=== PATIENT | female | born 1975 | race Caucasian/White ===

== ENCOUNTER 2017-12-30 19:16 | Inpatient (IN) | payer OTHER ==
[2017-12-31] MEDS ORDERED: GLUCAGON 1 MG INJ IM (02:00)
[2017-12-31] MEDS ORDERED: GLUCOSE GEL 15 GRAM TUBE BUCCAL (02:00)
[2017-12-31] MEDS ORDERED: GLUCOSE GEL 15 GRAM TUBE PO ×2 (02:00)
[2017-12-31] MEDS ORDERED: DEXTROSE 50% 50 ML SYRINGE IV ×2 (02:00)
[2017-12-31] MEDS: ACCU-CHEK XX ×3 (07:54→14:20)
[2017-12-31] MEDS: INSULIN ASPART [NOVOLOG] 3 ML PEN SC ×2 (08:30→12:20)
[2017-12-31 09:20] LABS: ALANINE AMINOTRANSFERASE 23 IU/L (13-69); ALBUMIN 3.3 g/dl (3.3-4.9); ALBUMIN/GLOBULIN RATIO 0.91; ALKALINE PHOSPHATASE 65 IU/L (42-121); ANION GAP 14 (8-16); ASPARTATE AMINO TRANSFERASE 16 IU/L (15-46); BILIRUBIN,INDIRECT 0.2 mg/dl (0-1.1); BILIRUBIN,TOTAL 0.2 mg/dl (0.2-1.3); BLOOD UREA NITROGEN 8 mg/dl (7-20); CALCIUM 9.3 mg/dl (8.4-10.2); CARBON DIOXIDE 22 mmol/L (21-31); CHLORIDE 108 mmol/L (97-110); CREATININE 0.46 mg/dl (0.44-1.00); GLUCOSE 158 mg/dl (70-220); SODIUM 140 mmol/L (135-144); TOTAL PROTEIN 6.9 g/dl (6.1-8.1)
[2017-12-31 09:41] LABS: HEMOGLOBIN A1C 7.9 % (0-5.9)
[2017-12-31] MEDS: INSULIN GLARGINE [LANtus] 3 ML PEN SC (21:28)
== END 2017-12-31 23:15 | disposition left against medical advice (07) | DRG 781 ==
LOC: OBT 19:16 → PP1 19:19
PROVIDERS: Obstetrics & Gynecology
DX: O24.912 Unspecified diabetes mellitus in pregnancy, second trimester (principal); O09.522 Supervision of elderly multigravida, second trimester; Z3A.21 21 weeks gestation of pregnancy
CPT/HCPCS: 76815; 80053; 82962; 83036

== ENCOUNTER 2018-03-18 00:45 | Outpatient (CLI) | payer OTHER ==
[2018-03-18 03:06] LABS: HEMOGLOBIN A1C 7.3 % (0-5.9)
[2018-03-18 03:24] LABS: GLUCOSE 151 mg/dl (70-220)
== END 2018-03-18 04:00 | disposition home or self-care (01) ==
LOC: OBT 00:45 → L-D 00:47 → OBT 04:00
DX: O24.913 Unspecified diabetes mellitus in pregnancy, third trimester (principal); O09.523 Supervision of elderly multigravida, third trimester; Z3A.32 32 weeks gestation of pregnancy
CPT/HCPCS: 76818; 82947; 83036

== ENCOUNTER 2018-04-08 11:08 | Outpatient (CLI) | payer OTHER ==
[2018-04-26] MEDS ORDERED: INSULIN REGULAR, HUMAN 100 UNIT/1 ML 3ML VIAL SC (13:00)
[2018-04-26] MEDS ORDERED: ACCU-CHEK XX (14:00)
[2018-04-26] MEDS ORDERED: NPH, HUMAN INSULIN ISOPHANE 3ML VIAL SC (20:00)
[2018-04-27] MEDS ORDERED: ACCU-CHEK XX (02:00)
== END 2018-04-08 14:38 | disposition home or self-care (01) ==
LOC: OBT 11:08 → L-D 11:08 → OBT 14:38
DX: O24.913 Unspecified diabetes mellitus in pregnancy, third trimester (principal); O36.8330 Maternal care for abnormalities of the fetal heart rate or rhythm, third trimester, not applicable or unspecified; O09.523 Supervision of elderly multigravida, third trimester; Z3A.35 35 weeks gestation of pregnancy
CPT/HCPCS: 76818; 82962; 93970

== ENCOUNTER 2018-04-13 05:01 | Inpatient (IN) | payer OTHER ==
[2018-04-13] MEDS ORDERED: GLUCOSE GEL 15 GRAM TUBE PO ×2 (06:00)
[2018-04-13] MEDS ORDERED: DEXTROSE 50% 50 ML SYRINGE IV ×2 (06:00)
[2018-04-13] MEDS ORDERED: GLUCAGON 1 MG INJ IM (06:00)
[2018-04-13] MEDS ORDERED: GLUCOSE GEL 15 GRAM TUBE BUCCAL (06:00)
[2018-04-13] MEDS: ACETAMINOPHEN 325 MG TAB PO ×3 (07:08→20:56)
[2018-04-13 07:15] LABS: ADD MAN DIFF? NO
[2018-04-13 07:18] LABS: BASOPHILS % 0.4 % (0.0-2.0); EOSINOPHILS # 0.2 10^3/ul (0.0-0.5); EOSINOPHILS % 2.1 % (0.0-7.0); LYMPHOCYTES # 2.6 10^3/ul (0.8-2.9); LYMPHOCYTES % 25.7 % (15.0-51.0); MEAN CORPUSCULAR HEMOGLOBIN 24.4 pg (29.0-33.0); MEAN CORPUSCULAR HGB CONC 31.4 g/dl (32.0-37.0); MEAN CORPUSCULAR VOLUME 77.6 fl (82.0-101.0); MEAN PLATELET VOLUME 11.9 fl (7.4-10.4); MONOCYTE # 0.6 10^3/ul (0.3-0.9); MONOCYTES % 5.9 % (0.0-11.0); NEUTROPHIL # 6.7 10^3/ul (1.6-7.5); NEUTROPHILS % 65.1 % (39.0-77.0); PLATELET COUNT 226 10^3/UL (140-415); RED BLOOD COUNT 4.51 10^6/ul (4.20-5.40); RED CELL DISTRIBUTION WIDTH 14.5 % (11.5-14.5)
[2018-04-13 07:18] LABS: WHITE BLOOD COUNT 10.2 10^3/ul (4.8-10.8)
[2018-04-13 07:34] LABS: ALANINE AMINOTRANSFERASE 19 IU/L (13-69); ALBUMIN 3.4 g/dl (3.3-4.9); ALBUMIN/GLOBULIN RATIO 1.03; ALKALINE PHOSPHATASE 132 IU/L (42-121); ANION GAP 10 (8-16); ASPARTATE AMINO TRANSFERASE 25 IU/L (15-46); BILIRUBIN,INDIRECT 0.3 mg/dl (0-1.1); BILIRUBIN,TOTAL 0.3 mg/dl (0.2-1.3); BLOOD UREA NITROGEN 9 mg/dl (7-20); CALCIUM 9.9 mg/dl (8.4-10.2); CARBON DIOXIDE 23 mmol/L (21-31); CHLORIDE 112 mmol/L (97-110); CREATININE 0.51 mg/dl (0.44-1.00); GLUCOSE 87 mg/dl (70-220); POTASSIUM 3.9 mmol/L (3.5-5.1); SODIUM 141 mmol/L (135-144); TOTAL PROTEIN 6.7 g/dl (6.1-8.1); URIC ACID 5.5 mg/dl (3.1-7.9)
[2018-04-13] MEDS: INSULIN ASPART [NOVOLOG] 3 ML PEN SC ×3 (09:57→17:28)
[2018-04-13] MEDS: NPH, HUMAN INSULIN ISOPHANE 3ML VIAL SC ×2 (09:59→21:38)
[2018-04-13] MEDS: ACCU-CHEK XX ×4 (10:00→20:41)
[2018-04-13] MEDS: DOCUSATE SODIUM 100 MG CAP PO (10:04)
[2018-04-13] MEDS: FERROUS SULFATE (EC) 325 MG TAB PO (10:05)
[2018-04-13] MEDS: PRENATAL VITAMIN PO (10:05)
[2018-04-13] MEDS: LABETALOL 100 MG TAB PO ×2 (10:07→21:29)
[2018-04-13 16:31] LABS: UR BILIRUBIN (Dip) NEGATIVE (NEGATIVE); UR BLOOD (Dip) 2+ mg/dL (NEGATIVE); UR CLARITY SLIGHTLY CLOUDY (CLEAR); UR COLOR YELLOW (YELLOW); UR GLUCOSE (Dip) NEGATIVE (NEGATIVE); UR KETONES (Dip) NEGATIVE (NEGATIVE); UR SPECIFIC GRAVITY (Dip) 1.017 (1.003-1.030); UR TOTAL PROTEIN (Dip) NEGATIVE (NEGATIVE)
[2018-04-13 16:32] LABS: ADD UMIC YES; UR ASCORBIC ACID NEGATIVE (NEGATIVE); UR BACTERIA MODERATE /HPF (NONE SEEN); UR CALCIUM OXALATE CRYSTAL FEW /HPF (NONE SEEN); UR LEUKOCYTE ESTERASE (Dip) TRACE Leu/ul (NEGATIVE); UR NITRITE (Dip) NEGATIVE (NEGATIVE); UR RBC 13 /HPF (0-5); UR UROBILINOGEN (Dip) NEGATIVE (NEGATIVE); UR WBC 22 /HPF (0-5)
[2018-04-13] MEDS ORDERED: OXYTOCIN 30 UNITS/LR 500 ML IV ×3 (19:00→21:30)
[2018-04-13] MEDS ORDERED: METHYLERGONOVINE 0.2 MG INJ IM ×2 (19:00→21:30)
[2018-04-13] MEDS ORDERED: MISOPROSTOL 200 MCG TAB PR ×2 (19:00→21:30)
[2018-04-13] MEDS ORDERED: CARBOPROST 250 MCG INJ IM ×2 (19:00→21:30)
[2018-04-13 21:00] LABS: ADD MAN DIFF? NO
[2018-04-13 21:02] LABS: HEPATITIS B SURFACE ANTIGEN NEGATIVE (NEGATIVE)
[2018-04-13 21:03] LABS: WHITE BLOOD COUNT 9.8 10^3/ul (4.8-10.8)
[2018-04-13 21:03] LABS: BASOPHILS % 0.4 % (0.0-2.0); EOSINOPHILS # 0.2 10^3/ul (0.0-0.5); EOSINOPHILS % 1.8 % (0.0-7.0); HEMATOCRIT 33.5 % (37.0-47.0); HEMOGLOBIN 10.6 g/dl (12.0-16.0); LYMPHOCYTES # 2.6 10^3/ul (0.8-2.9); LYMPHOCYTES % 26.2 % (15.0-51.0); MEAN CORPUSCULAR HEMOGLOBIN 24.8 pg (29.0-33.0); MEAN CORPUSCULAR HGB CONC 31.6 g/dl (32.0-37.0); MEAN CORPUSCULAR VOLUME 78.3 fl (82.0-101.0); MONOCYTE # 0.6 10^3/ul (0.3-0.9); MONOCYTES % 6.2 % (0.0-11.0); NEUTROPHIL # 6.3 10^3/ul (1.6-7.5); NEUTROPHILS % 64.8 % (39.0-77.0); PLATELET COUNT 219 10^3/UL (140-415); RED BLOOD COUNT 4.28 10^6/ul (4.20-5.40); RED CELL DISTRIBUTION WIDTH 14.3 % (11.5-14.5)
[2018-04-13 21:22] LABS: ALANINE AMINOTRANSFERASE 21 IU/L (13-69); ALBUMIN/GLOBULIN RATIO 0.85; ALKALINE PHOSPHATASE 117 IU/L (42-121); ANION GAP 10 (8-16); ASPARTATE AMINO TRANSFERASE 22 IU/L (15-46); BILIRUBIN,INDIRECT 0.2 mg/dl (0-1.1); BILIRUBIN,TOTAL 0.2 mg/dl (0.2-1.3); BLOOD UREA NITROGEN 12 mg/dl (7-20); CALCIUM 9.5 mg/dl (8.4-10.2); CARBON DIOXIDE 21 mmol/L (21-31); CHLORIDE 108 mmol/L (97-110); CREATININE 0.67 mg/dl (0.44-1.00); GLUCOSE 101 mg/dl (70-220); SODIUM 135 mmol/L (135-144); TOTAL PROTEIN 6.5 g/dl (6.1-8.1)
[2018-04-13 21:23] LABS: INR 0.98; PROTIME 13.1 Sec (11.9-14.9)
[2018-04-13 21:24] LABS: PARTIAL THROMBOPLASTIN TIME 28.4 Sec (25.0-35.0)
[2018-04-14] MEDS: LACTATED RINGER'S 1,000 ML IV ×6 (06:13→22:12)
[2018-04-14] MEDS ORDERED: CEFAZOLIN 2 GM/50 ML (PMX) 50 ML IV (07:00)
[2018-04-14] MEDS ORDERED: OXYTOCIN 30 UNITS/LR 500 ML BAG IV (07:00)
[2018-04-14] MEDS: INSULIN ASPART [NOVOLOG] 3 ML PEN SC ×3 (07:35→17:11)
[2018-04-14] MEDS ORDERED: OXYTOCIN 30 UNITS/LR 500 ML IV (08:00)
[2018-04-14] MEDS ORDERED: MISOPROSTOL 200 MCG TAB PR (08:00)
[2018-04-14] MEDS ORDERED: METHYLERGONOVINE 0.2 MG TAB PO (08:00)
[2018-04-14] MEDS ORDERED: METHYLERGONOVINE 0.2 MG INJ IM (08:00)
[2018-04-14] MEDS ORDERED: CARBOPROST 250 MCG INJ IM (08:00)
[2018-04-14] MEDS ORDERED: LANOLIN 7 GM TUBE TOP (08:00)
[2018-04-14] MEDS ORDERED: BUPIVACAINE 0.75%/DEXT (SPINAL) 2 ML INJ (08:25)
[2018-04-14] MEDS: CEFAZOLIN 3 GM in DEXTROSE 5% 100 ML IV (08:25)
[2018-04-14] MEDS ORDERED: morphine SULFATE/PF (10 MG/10 ML) INJ (08:25)
[2018-04-14] MEDS ORDERED: PHENYLephrine (100 MCG/ML) 5ML SYG (08:26)
[2018-04-14] MEDS ORDERED: CEFAZOLIN 2 GM/50 ML (PMX) 50 ML IVPB (09:00)
[2018-04-14] MEDS ORDERED: GLUCOSE GEL 15 GRAM TUBE BUCCAL (09:00)
[2018-04-14] MEDS: SENNA/DOCUSATE NA (8.6MG/50MG) TAB PO ×2 (09:00→21:00)
[2018-04-14] MEDS: KETOROLAC 30 MG INJ IV ×4 (09:00→21:08)
[2018-04-14] MEDS ORDERED: GLUCOSE GEL 15 GRAM TUBE PO ×2 (09:00)
[2018-04-14] MEDS ORDERED: GLUCAGON 1 MG INJ IM (09:00)
[2018-04-14] MEDS ORDERED: DEXTROSE 50% 50 ML SYRINGE IV ×2 (09:00)
[2018-04-14] MEDS: LABETALOL 100 MG TAB PO ×2 (09:00→21:09)
[2018-04-14 09:19] LABS: Arterial Cord Blood pCO2 79.9 mmHG (25-50); CBA Base Excess -5.8 mmol/L; CBA COHb 0.3 %; CBA Total Hemglobin 17.4 g/dl; Fraction OxyHgb Cord Arterial 3.3 %; MODE ROOM AIR; Sample Type CBA; Site CORD
[2018-04-14 09:23] LABS: CBV Base Excess -5.1 mmol/L; CBV COHb 0.7 %; CBV Oxygen Sat 34.7 mmHG; CBV Total Hemglobin 17.8 g/dl; Cord Blood Venous pO2 18.5 mmHG (15.0-45.0); Fraction OxyHgb Cord Venous 33.9 %; MODE ROOM AIR; MetHgb Cord Venous 1.6 %; Sample Type CBV; Site CORD
[2018-04-14] MEDS ORDERED: METOCLOPRAMIDE 10 MG INJ (10:06)
[2018-04-14] MEDS: METOCLOPRAMIDE 10 MG INJ IV (10:12)
[2018-04-14] MEDS: OXYTOCIN 30 UNITS/LR 500 ML IV (10:23)
[2018-04-14] MEDS ORDERED: NALOXONE (0.4 MG/ML) INJ IV ×3 (10:30→13:30)
[2018-04-14] MEDS ORDERED: FENTAnyl 50 MCG/ML VIAL IV ×4 (10:30)
[2018-04-14] MEDS ORDERED: HYDROmorphONE 1 MG/5 ML IV SYRINGE IV ×4 (10:30)
[2018-04-14] MEDS ORDERED: ALBUTEROL 0.083% (NEB) 2.5 MG/3 ML AMP HHN (10:30)
[2018-04-14] MEDS ORDERED: KETOROLAC 30 MG INJ IV (10:30)
[2018-04-14] MEDS ORDERED: INSULIN LISPRO 20 UNIT SQ (11:00)
[2018-04-14] MEDS: ACCU-CHEK XX ×4 (11:48→20:08)
[2018-04-14 12:01] LABS: COLLECTION PERIOD 24 hrs
[2018-04-14] MEDS ORDERED: ONDANSETRON 4 MG INJ ×2 (12:20)
[2018-04-14] MEDS ORDERED: LABETALOL HCL 20MG INJ (12:21)
[2018-04-14] MEDS ORDERED: DIPHENHYDRAMINE 50 MG INJ (12:21)
[2018-04-14] MEDS: HYDROCORTISONE 1% 28 GM CR TOP (12:31)
[2018-04-14] MEDS: INSULIN REGULAR, HUMAN 100 UNIT/1 ML 3ML VIAL SC (13:05)
[2018-04-14] MEDS ORDERED: METOCLOPRAMIDE 10 MG INJ IV (13:30)
[2018-04-14] MEDS ORDERED: ONDANSETRON 4 MG INJ IV (13:30)
[2018-04-14] MEDS ORDERED: DIPHENHYDRAMINE 50 MG INJ IV (13:30)
[2018-04-14 13:34] LABS: ALANINE AMINOTRANSFERASE 14 IU/L (13-69); ALBUMIN 3.2 g/dl (3.3-4.9); ALBUMIN/GLOBULIN RATIO 0.91; ALKALINE PHOSPHATASE 128 IU/L (42-121); ANION GAP 13 (8-16); ASPARTATE AMINO TRANSFERASE 29 IU/L (15-46); BILIRUBIN,INDIRECT 0.4 mg/dl (0-1.1); BILIRUBIN,TOTAL 0.4 mg/dl (0.2-1.3); BLOOD UREA NITROGEN 12 mg/dl (7-20); CALCIUM 9.4 mg/dl (8.4-10.2); CARBON DIOXIDE 20 mmol/L (21-31); CHLORIDE 108 mmol/L (97-110); CREATININE 0.59 mg/dl (0.44-1.00); GLUCOSE 227 mg/dl (70-220); POTASSIUM 4.6 mmol/L (3.5-5.1); SODIUM 136 mmol/L (135-144); TOTAL PROTEIN 6.7 g/dl (6.1-8.1)
[2018-04-14 13:43] LABS: COLLECTION PERIOD 24 hrs
[2018-04-14 13:45] LABS: SCRET 0.59 mg/dl (0.44-1.00); VOLUME 2000 ml/24hrs
[2018-04-14 13:46] LABS: CREATININE CLEARANCE 181.7 mls/min (84.0-162.0); VOLUME 2000 mls
[2018-04-14 15:09] LABS: RAPID PLASMA REAGIN NONREACTIVE (NR)
[2018-04-14] MEDS: ENOXAPARIN 40 MG/0.4 ML SYG SC (15:14)
[2018-04-14] MEDS: INSULIN REGULAR, HUMAN 100 UNIT/1 ML 3ML VIAL IV (16:31)
[2018-04-14] MEDS: ONDANSETRON 4 MG INJ IV (16:41)
[2018-04-14] MEDS ORDERED: POTASSIUM CHLORIDE 30 MEQ in SOD CHLORIDE 0.9% 1,000 ML IV (17:30)
[2018-04-14] MEDS: CEFAZOLIN 2 GM/50 ML (PMX) 50 ML IVPB (17:36)
[2018-04-14] MEDS ORDERED: SOD CHLORIDE 0.9% IV (18:30)
[2018-04-14] MEDS ORDERED: POTASSIUM CHLORIDE IV (18:30)
[2018-04-14] MEDS: POTASSIUM CHLORIDE IV (18:54)
[2018-04-14] MEDS: SOD CHLORIDE 0.9% IV (18:54)
[2018-04-14] MEDS: NPH, HUMAN INSULIN ISOPHANE 3ML VIAL SC (21:06)
[2018-04-15] MEDS: DIPHENHYDRAMINE 50 MG INJ IV (00:39)
[2018-04-15] MEDS: CEFAZOLIN 2 GM/50 ML (PMX) 50 ML IVPB ×2 (01:11→08:35)
[2018-04-15] MEDS: SOD CHLORIDE 0.9% IV ×2 (02:04→09:58)
[2018-04-15] MEDS: POTASSIUM CHLORIDE IV ×2 (02:04→09:58)
[2018-04-15] MEDS: KETOROLAC 30 MG INJ IV ×4 (02:55→21:07)
[2018-04-15] MEDS: NPH, HUMAN INSULIN ISOPHANE 3ML VIAL SC ×2 (07:35→21:27)
[2018-04-15] MEDS: LACTATED RINGER'S 1,000 ML IV ×2 (07:53→15:53)
[2018-04-15 08:09] LABS: ADD MAN DIFF? NO
[2018-04-15 08:12] LABS: BASOPHILS % 0.3 % (0.0-2.0); EOSINOPHILS # 0.1 10^3/ul (0.0-0.5); EOSINOPHILS % 1.3 % (0.0-7.0); HEMATOCRIT 27.7 % (37.0-47.0); HEMOGLOBIN 8.5 g/dl (12.0-16.0); LYMPHOCYTES # 2.8 10^3/ul (0.8-2.9); LYMPHOCYTES % 25.3 % (15.0-51.0); MEAN CORPUSCULAR HEMOGLOBIN 24.2 pg (29.0-33.0); MEAN CORPUSCULAR HGB CONC 30.7 g/dl (32.0-37.0); MEAN CORPUSCULAR VOLUME 78.9 fl (82.0-101.0); MEAN PLATELET VOLUME 11.8 fl (7.4-10.4); MONOCYTE # 0.7 10^3/ul (0.3-0.9); MONOCYTES % 6.3 % (0.0-11.0); NEUTROPHIL # 7.4 10^3/ul (1.6-7.5); NEUTROPHILS % 66.2 % (39.0-77.0); PLATELET COUNT 188 10^3/UL (140-415); RED BLOOD COUNT 3.51 10^6/ul (4.20-5.40); RED CELL DISTRIBUTION WIDTH 14.9 % (11.5-14.5)
[2018-04-15 08:12] LABS: WHITE BLOOD COUNT 11.1 10^3/ul (4.8-10.8)
[2018-04-15] MEDS: ACCU-CHEK XX ×4 (08:19→20:05)
[2018-04-15 08:31] LABS: ALANINE AMINOTRANSFERASE 16 IU/L (13-69); ALBUMIN 2.6 g/dl (3.3-4.9); ALBUMIN/GLOBULIN RATIO 0.81; ALKALINE PHOSPHATASE 94 IU/L (42-121); ANION GAP 9 (8-16); ASPARTATE AMINO TRANSFERASE 25 IU/L (15-46); BILIRUBIN,INDIRECT 0.3 mg/dl (0-1.1); BILIRUBIN,TOTAL 0.3 mg/dl (0.2-1.3); BLOOD UREA NITROGEN 15 mg/dl (7-20); CARBON DIOXIDE 22 mmol/L (21-31); CHLORIDE 111 mmol/L (97-110); CREATININE 0.73 mg/dl (0.44-1.00); GLUCOSE 87 mg/dl (70-220); POTASSIUM 4.3 mmol/L (3.5-5.1); SODIUM 138 mmol/L (135-144); TOTAL PROTEIN 5.8 g/dl (6.1-8.1); URIC ACID 7.7 mg/dl (3.1-7.9)
[2018-04-15 08:32] LABS: PROTIME 13.3 Sec (11.9-14.9)
[2018-04-15 08:33] LABS: PARTIAL THROMBOPLASTIN TIME 30.3 Sec (25.0-35.0)
[2018-04-15] MEDS: ENOXAPARIN 40 MG/0.4 ML SYG SC (08:45)
[2018-04-15] MEDS: INSULIN ASPART [NOVOLOG] 3 ML PEN SC ×3 (08:46→18:20)
[2018-04-15] MEDS: SENNA/DOCUSATE NA (8.6MG/50MG) TAB PO ×2 (09:00→21:08)
[2018-04-15] MEDS: LABETALOL 100 MG TAB PO ×2 (09:00→21:08)
[2018-04-15] MEDS: HYDROCODONE/APAP (5/325) TAB PO ×2 (11:12→18:29)
[2018-04-15] MEDS ORDERED: VITAMIN A & D 5 GM OINT PACKET TOP (21:04)
[2018-04-16] MEDS: LACTATED RINGER'S 1,000 ML IV ×3 (01:04→15:53)
[2018-04-16] MEDS: HYDROCODONE/APAP (5/325) TAB PO ×3 (01:08→15:48)
[2018-04-16] MEDS: KETOROLAC 30 MG INJ IV ×3 (04:00→15:00)
[2018-04-16] MEDS: IBUPROFEN 800 MG TAB PO ×3 (06:00→21:08)
[2018-04-16] MEDS: ACCU-CHEK XX ×4 (08:12→21:00)
[2018-04-16] MEDS: SENNA/DOCUSATE NA (8.6MG/50MG) TAB PO ×2 (08:31→21:07)
[2018-04-16] MEDS: LABETALOL 100 MG TAB PO ×2 (08:31→21:08)
[2018-04-16] MEDS: ENOXAPARIN 40 MG/0.4 ML SYG SC (08:33)
[2018-04-16] MEDS: INSULIN ASPART [NOVOLOG] 3 ML PEN SC ×3 (08:34→18:00)
[2018-04-16] MEDS: NPH, HUMAN INSULIN ISOPHANE 3ML VIAL SC ×2 (08:36→21:10)
[2018-04-17] MEDS: HYDROCODONE/APAP (5/325) TAB PO ×4 (00:31→18:14)
[2018-04-17] MEDS: IBUPROFEN 800 MG TAB PO ×3 (06:18→21:50)
[2018-04-17] MEDS: ACCU-CHEK XX ×4 (08:31→21:30)
[2018-04-17] MEDS: SENNA/DOCUSATE NA (8.6MG/50MG) TAB PO ×2 (08:48→21:00)
[2018-04-17] MEDS: LABETALOL 100 MG TAB PO ×2 (08:48→20:43)
[2018-04-17] MEDS: ENOXAPARIN 40 MG/0.4 ML SYG SC (08:50)
[2018-04-17] MEDS: INSULIN ASPART [NOVOLOG] 3 ML PEN SC ×3 (08:51→18:19)
[2018-04-17] MEDS: NPH, HUMAN INSULIN ISOPHANE 3ML VIAL SC ×2 (08:55→21:43)
[2018-04-17] MEDS: MEASLES,MUMPS,RUBELLA VACCINE INJ SC* (09:00)
[2018-04-17] MEDS: BISACODYL (EC) 5 MG TAB PO (12:41)
[2018-04-17] MEDS: DIPHTH/TET/ACEL PERTUSS (ADULT) 0.5 ML VIAL IM* (13:44)
[2018-04-17] MEDS: PETROLATUM 28.35 GM JELLY TOP ×2 (13:46→20:44)
[2018-04-17] MEDS: NA PHOSPHATE/BIPHOS 133 ML ENEMA PR (18:36)
[2018-04-17] MEDS: HYDROCORTISONE 1% 28 GM CR TOP (20:43)
[2018-04-18] MEDS: HYDROCODONE/APAP (5/325) TAB PO ×2 (04:16→08:23)
[2018-04-18] MEDS: IBUPROFEN 800 MG TAB PO (05:47)
[2018-04-18] MEDS: NPH, HUMAN INSULIN ISOPHANE 3ML VIAL SC (07:35)
[2018-04-18] MEDS: PETROLATUM 28.35 GM JELLY TOP (08:06)
[2018-04-18] MEDS: ACCU-CHEK XX ×2 (08:06→11:40)
[2018-04-18] MEDS: SENNA/DOCUSATE NA (8.6MG/50MG) TAB PO (08:07)
[2018-04-18 08:20] LABS: ADD MAN DIFF? NO
[2018-04-18] MEDS: LABETALOL 100 MG TAB PO (08:25)
[2018-04-18 08:28] LABS: BASOPHIL # 0.1 10^3/ul (0.0-0.1); BASOPHILS % 0.5 % (0.0-2.0); EOSINOPHILS # 0.4 10^3/ul (0.0-0.5); EOSINOPHILS % 3.5 % (0.0-7.0); HEMATOCRIT 30.7 % (37.0-47.0); HEMOGLOBIN 9.4 g/dl (12.0-16.0); LYMPHOCYTES # 2.5 10^3/ul (0.8-2.9); LYMPHOCYTES % 25.1 % (15.0-51.0); MEAN CORPUSCULAR HEMOGLOBIN 24.3 pg (29.0-33.0); MEAN CORPUSCULAR HGB CONC 30.6 g/dl (32.0-37.0); MEAN CORPUSCULAR VOLUME 79.3 fl (82.0-101.0); MEAN PLATELET VOLUME 11.1 fl (7.4-10.4); MONOCYTE # 0.6 10^3/ul (0.3-0.9); MONOCYTES % 5.6 % (0.0-11.0); NEUTROPHIL # 6.5 10^3/ul (1.6-7.5); NEUTROPHILS % 64.7 % (39.0-77.0); PLATELET COUNT 304 10^3/UL (140-415); RED BLOOD COUNT 3.87 10^6/ul (4.20-5.40); RED CELL DISTRIBUTION WIDTH 14.6 % (11.5-14.5)
[2018-04-18] MEDS: ENOXAPARIN 40 MG/0.4 ML SYG SC (08:29)
[2018-04-18] MEDS: INSULIN ASPART [NOVOLOG] 3 ML PEN SC (09:19)
[2018-04-18] MEDS: DIPHTH/TET/ACEL PERTUSS (ADULT) 0.5 ML VIAL IM* (12:13)
== END 2018-04-18 13:03 | disposition home or self-care (01) | DRG 766 ==
LOC: PP1 05:01 → L-D 04-14 07:51 → PP1 04-14 14:06
PROVIDERS: Obstetrics & Gynecology
PROC: 10D00Z1 Extraction of Products of Conception, Low, Open Approach (ICD-10-PCS; principal; 2018-04-14 07:30)
PROC: 0UB70ZZ Excision of Bilateral Fallopian Tubes, Open Approach (ICD-10-PCS; 2018-04-14 07:30)
DX: O24.82 Other pre-existing diabetes mellitus in childbirth (principal); O14.94 Unspecified pre-eclampsia, complicating childbirth; O34.211 Maternal care for low transverse scar from previous cesarean delivery; O99.214 Obesity complicating childbirth; E66.01 Morbid (severe) obesity due to excess calories; E10.65 Type 1 diabetes mellitus with hyperglycemia; O99.02 Anemia complicating childbirth; D64.9 Anemia, unspecified; Z3A.36 36 weeks gestation of pregnancy; Z37.0 Single live birth; Z91.19 Patient's noncompliance with other medical treatment and regimen; Z79.4 Long term (current) use of insulin; Z30.2 Encounter for sterilization
CPT/HCPCS: 36415; 36600; 76818; 80053; 81001; 82575; 82803; 82962; 84156; 84560; 85025; 85384; 85610; 85730; 86592; 86850; 86900; 86901; 87086; 87340; 88302; 88307; 90715; 99464

== ENCOUNTER 2018-04-24 23:06 | Emergency (ER) | payer OTHER ==
[2018-04-25] MEDS: ONDANSETRON 4 MG INJ IV (01:57)
[2018-04-25] MEDS: morphine 4 MG/ML VIAL IV (01:57)
[2018-04-25] MEDS: SOD CHLORIDE 0.9% 1,000 ML IV (02:02)
[2018-04-25 02:19] LABS: ADD MAN DIFF? NO
[2018-04-25 02:20] LABS: WHITE BLOOD COUNT 12.8 10^3/ul (4.8-10.8)
[2018-04-25 02:20] LABS: BASOPHIL # 0.1 10^3/ul (0.0-0.1); BASOPHILS % 0.4 % (0.0-2.0); EOSINOPHILS # 0.3 10^3/ul (0.0-0.5); EOSINOPHILS % 2.4 % (0.0-7.0); HEMATOCRIT 29.4 % (37.0-47.0); LYMPHOCYTES # 2.4 10^3/ul (0.8-2.9); LYMPHOCYTES % 19.1 % (15.0-51.0); MEAN CORPUSCULAR HEMOGLOBIN 24.2 pg (29.0-33.0); MEAN CORPUSCULAR HGB CONC 30.6 g/dl (32.0-37.0); MEAN PLATELET VOLUME 9.9 fl (7.4-10.4); MONOCYTE # 0.7 10^3/ul (0.3-0.9); MONOCYTES % 5.4 % (0.0-11.0); NEUTROPHIL # 9.2 10^3/ul (1.6-7.5); PLATELET COUNT 438 10^3/UL (140-415); RED BLOOD COUNT 3.72 10^6/ul (4.20-5.40); RED CELL DISTRIBUTION WIDTH 14.1 % (11.5-14.5)
[2018-04-25] MEDS: SOD CHLORIDE 0.9% 100 ML (02:33)
[2018-04-25] MEDS: IOHEXOL 300MG/ML 150 ML BTL (02:33)
[2018-04-25 02:39] LABS: ADD UMIC YES; UR ASCORBIC ACID 40 mg/dL (NEGATIVE); UR BACTERIA FEW /HPF (NONE SEEN); UR BILIRUBIN (Dip) NEGATIVE (NEGATIVE); UR BLOOD (Dip) 3+ mg/dL (NEGATIVE); UR CLARITY SLIGHTLY CLOUDY (CLEAR); UR COLOR YELLOW (YELLOW); UR GLUCOSE (Dip) NEGATIVE (NEGATIVE); UR KETONES (Dip) NEGATIVE (NEGATIVE); UR LEUKOCYTE ESTERASE (Dip) TRACE Leu/ul (NEGATIVE); UR MUCUS FEW /HPF (NONE SEEN); UR NITRITE (Dip) NEGATIVE (NEGATIVE); UR NONSQUAMOUS EPITHELIAL CELL 3 /HPF (NONE SEEN); UR RBC 177 /HPF (0-5); UR SPECIFIC GRAVITY (Dip) 1.028 (1.003-1.030); UR SQUAMOUS EPITHELIAL CELL FEW /HPF (FEW); UR TOTAL PROTEIN (Dip) 2+ mg/dl (NEGATIVE); UR UROBILINOGEN (Dip) NEGATIVE (NEGATIVE); UR WBC 15 /HPF (0-5)
[2018-04-25 02:41] LABS: ALANINE AMINOTRANSFERASE 19 IU/L (13-69); ALBUMIN 3.4 g/dl (3.3-4.9); ALBUMIN/GLOBULIN RATIO 0.91; ALKALINE PHOSPHATASE 109 IU/L (42-121); ANION GAP 15 (8-16); ASPARTATE AMINO TRANSFERASE 19 IU/L (15-46); BILIRUBIN,INDIRECT 0.1 mg/dl (0-1.1); BILIRUBIN,TOTAL 0.1 mg/dl (0.2-1.3); BLOOD UREA NITROGEN 15 mg/dl (7-20); CALCIUM 9.4 mg/dl (8.4-10.2); CARBON DIOXIDE 24 mmol/L (21-31); CHLORIDE 108 mmol/L (97-110); CREATININE 0.63 mg/dl (0.44-1.00); GLUCOSE 102 mg/dl (70-220); LIPASE 20 U/L (23-300); POTASSIUM 4.1 mmol/L (3.5-5.1); SODIUM 143 mmol/L (135-144); TOTAL PROTEIN 7.1 g/dl (6.1-8.1)
[2018-04-25] MEDS: CEFTRIAXONE 2 GM/50 ML (PMX) 50 ML IVPB (04:40)
== END 2018-04-25 05:15 | disposition home or self-care (01) ==
LOC: FTE 23:06
DX: L03.311 Cellulitis of abdominal wall (principal); I10 Essential (primary) hypertension; E66.01 Morbid (severe) obesity due to excess calories; Z79.4 Long term (current) use of insulin
CPT/HCPCS: 36415; 74177; 80053; 81001; 83690; 85025; 96374; 96375; 99285-25

== ENCOUNTER 2018-04-25 23:02 | Inpatient (IN) | payer OTHER ==
[2018-04-26] MEDS: ONDANSETRON 4 MG INJ IV (02:40)
[2018-04-26] MEDS: SOD CHLORIDE 0.9% 1,000 ML IV (02:40)
[2018-04-26] MEDS: morphine 4 MG/ML VIAL IV (02:40)
[2018-04-26] MEDS: ACETAMINOPHEN 500 MG TAB PO (02:40)
[2018-04-26 02:55] LABS: ADD MAN DIFF? NO
[2018-04-26 02:57] LABS: BASOPHIL # 0.1 10^3/ul (0.0-0.1); BASOPHILS % 0.6 % (0.0-2.0); EOSINOPHILS # 0.4 10^3/ul (0.0-0.5); EOSINOPHILS % 3.3 % (0.0-7.0); HEMATOCRIT 32.4 % (37.0-47.0); HEMOGLOBIN 9.8 g/dl (12.0-16.0); LYMPHOCYTES # 2.5 10^3/ul (0.8-2.9); LYMPHOCYTES % 18.8 % (15.0-51.0); MEAN CORPUSCULAR HEMOGLOBIN 23.7 pg (29.0-33.0); MEAN CORPUSCULAR HGB CONC 30.2 g/dl (32.0-37.0); MEAN CORPUSCULAR VOLUME 78.5 fl (82.0-101.0); MEAN PLATELET VOLUME 10.3 fl (7.4-10.4); MONOCYTE # 0.7 10^3/ul (0.3-0.9); MONOCYTES % 5.2 % (0.0-11.0); NEUTROPHIL # 9.4 10^3/ul (1.6-7.5); NEUTROPHILS % 71.4 % (39.0-77.0); PLATELET COUNT 532 10^3/UL (140-415); RED BLOOD COUNT 4.13 10^6/ul (4.20-5.40); RED CELL DISTRIBUTION WIDTH 14.5 % (11.5-14.5)
[2018-04-26 02:57] LABS: WHITE BLOOD COUNT 13.2 10^3/ul (4.8-10.8)
[2018-04-26 03:19] LABS: LACTIC ACID 0.9 mmol/L (0.5-2.0)
[2018-04-26 03:22] LABS: ALANINE AMINOTRANSFERASE 20 IU/L (13-69); ALBUMIN 3.9 g/dl (3.3-4.9); ALBUMIN/GLOBULIN RATIO 0.92; ALKALINE PHOSPHATASE 138 IU/L (42-121); ANION GAP 14 (8-16); ASPARTATE AMINO TRANSFERASE 21 IU/L (15-46); BILIRUBIN,INDIRECT 0.2 mg/dl (0-1.1); BILIRUBIN,TOTAL 0.2 mg/dl (0.2-1.3); BLOOD UREA NITROGEN 15 mg/dl (7-20); CALCIUM 9.7 mg/dl (8.4-10.2); CARBON DIOXIDE 28 mmol/L (21-31); CHLORIDE 106 mmol/L (97-110); CREATININE 0.68 mg/dl (0.44-1.00); GLUCOSE 136 mg/dl (70-220); LIPASE 32 U/L (23-300); POTASSIUM 4.3 mmol/L (3.5-5.1); SODIUM 144 mmol/L (135-144); TOTAL PROTEIN 8.1 g/dl (6.1-8.1)
[2018-04-26] MEDS: PIPER-TAZO 3.375 GM IV (PMX) 100 ML IVPB ×4 (04:24→23:10)
[2018-04-26] MEDS ORDERED: ACETAMINOPHEN 325 MG TAB PO (06:00)
[2018-04-26] MEDS ORDERED: ONDANSETRON 4 MG INJ IV (06:00)
[2018-04-26 06:13] LABS: ADD UMIC YES; UR ASCORBIC ACID NEGATIVE (NEGATIVE); UR BACTERIA FEW /HPF (NONE SEEN); UR BILIRUBIN (Dip) NEGATIVE (NEGATIVE); UR BLOOD (Dip) 3+ mg/dL (NEGATIVE); UR CLARITY CLEAR (CLEAR); UR COLOR YELLOW (YELLOW); UR GLUCOSE (Dip) NEGATIVE (NEGATIVE); UR KETONES (Dip) NEGATIVE (NEGATIVE); UR LEUKOCYTE ESTERASE (Dip) TRACE Leu/ul (NEGATIVE); UR MUCUS FEW /HPF (NONE SEEN); UR NITRITE (Dip) NEGATIVE (NEGATIVE); UR RBC 87 /HPF (0-5); UR SPECIFIC GRAVITY (Dip) 1.019 (1.003-1.030); UR SQUAMOUS EPITHELIAL CELL FEW /HPF (FEW); UR TOTAL PROTEIN (Dip) NEGATIVE (NEGATIVE); UR UROBILINOGEN (Dip) NEGATIVE (NEGATIVE); UR WBC 4 /HPF (0-5)
[2018-04-26] MEDS ORDERED: VANCOMYCIN IV PER PHARMACY XX (10:00)
[2018-04-26] MEDS ORDERED: GLUCOSE GEL 15 GRAM TUBE BUCCAL (11:30)
[2018-04-26] MEDS ORDERED: GLUCAGON 1 MG INJ IM (11:30)
[2018-04-26] MEDS ORDERED: DEXTROSE 50% 50 ML SYRINGE IV ×2 (11:30)
[2018-04-26] MEDS ORDERED: GLUCOSE GEL 15 GRAM TUBE PO ×2 (11:30)
[2018-04-26] MEDS: HYDROCODONE/APAP (5/325) TAB PO ×3 (11:33→23:12)
[2018-04-26] MEDS: INSULIN ASPART [NOVOLOG] 3 ML PEN SC ×3 (12:00→19:55)
[2018-04-26 12:15] LABS: HEMOGLOBIN A1C 7.8 % (0-5.9)
[2018-04-26] MEDS: VANCOMYCIN 2 GM in SOD CHLORIDE 0.9% 500 ML IVPB (12:31)
[2018-04-26] MEDS: ACCU-CHEK XX ×2 (16:00→19:55)
[2018-04-26] MEDS: NA PHOSPHATE/BIPHOS 133 ML ENEMA PR (20:58)
[2018-04-26] MEDS: NPH, HUMAN INSULIN ISOPHANE 3ML VIAL SC (21:00)
[2018-04-26] MEDS: VANCOMYCIN 1.75 GM in SOD CHLORIDE 0.9% 500 ML IVPB (23:13)
[2018-04-27 05:41] LABS: ADD MAN DIFF? NO
[2018-04-27 05:47] LABS: BASOPHIL # 0.1 10^3/ul (0.0-0.1); BASOPHILS % 0.8 % (0.0-2.0); EOSINOPHILS # 0.4 10^3/ul (0.0-0.5); EOSINOPHILS % 3.7 % (0.0-7.0); HEMATOCRIT 28.8 % (37.0-47.0); HEMOGLOBIN 8.8 g/dl (12.0-16.0); LYMPHOCYTES # 2.6 10^3/ul (0.8-2.9); LYMPHOCYTES % 24.8 % (15.0-51.0); MEAN CORPUSCULAR HEMOGLOBIN 23.9 pg (29.0-33.0); MEAN CORPUSCULAR HGB CONC 30.6 g/dl (32.0-37.0); MEAN CORPUSCULAR VOLUME 78.3 fl (82.0-101.0); MEAN PLATELET VOLUME 10.3 fl (7.4-10.4); MONOCYTE # 0.7 10^3/ul (0.3-0.9); MONOCYTES % 6.4 % (0.0-11.0); NEUTROPHIL # 6.5 10^3/ul (1.6-7.5); NEUTROPHILS % 63.2 % (39.0-77.0); PLATELET COUNT 489 10^3/UL (140-415); RED BLOOD COUNT 3.68 10^6/ul (4.20-5.40)
[2018-04-27 05:47] LABS: WHITE BLOOD COUNT 10.3 10^3/ul (4.8-10.8)
[2018-04-27] MEDS: HYDROCODONE/APAP (5/325) TAB PO ×3 (06:02→21:07)
[2018-04-27] MEDS: PIPER-TAZO 3.375 GM IV (PMX) 100 ML IVPB ×3 (06:03→17:44)
[2018-04-27] MEDS: INSULIN ASPART [NOVOLOG] 3 ML PEN SC ×3 (08:32→17:48)
[2018-04-27] MEDS: NPH, HUMAN INSULIN ISOPHANE 3ML VIAL SC ×2 (08:33→20:26)
[2018-04-27] MEDS: BISACODYL (EC) 5 MG TAB PO (08:34)
[2018-04-27] MEDS: ACCU-CHEK XX ×3 (09:27→20:20)
[2018-04-27] MEDS: VANCOMYCIN 1.75 GM in SOD CHLORIDE 0.9% 500 ML IVPB (11:53)
[2018-04-27] MEDS: LABETALOL 100 MG TAB PO (20:20)
[2018-04-27] MEDS: ACETAMINOPHEN 325 MG TAB PO (20:20)
[2018-04-27 23:34] LABS: VANCOMYCIN,TROUGH 14.7 ug/ml (10.0-20.0)
[2018-04-28] MEDS: VANCOMYCIN 1.75 GM in SOD CHLORIDE 0.9% 500 ML IVPB ×2 (00:05→11:00)
[2018-04-28] MEDS: PIPER-TAZO 3.375 GM IV (PMX) 100 ML IVPB ×5 (00:05→22:19)
[2018-04-28] MEDS: HYDROCODONE/APAP (5/325) TAB PO ×3 (05:48→20:36)
[2018-04-28] MEDS: LABETALOL 100 MG TAB PO (05:54)
[2018-04-28 06:51] LABS: BLOOD UREA NITROGEN 12 mg/dl (7-20)
[2018-04-28 06:51] LABS: CREATININE 0.74 mg/dl (0.44-1.00)
[2018-04-28] MEDS: INSULIN ASPART [NOVOLOG] 3 ML PEN SC ×3 (09:01→17:56)
[2018-04-28] MEDS: NPH, HUMAN INSULIN ISOPHANE 3ML VIAL SC (09:02)
[2018-04-28] MEDS: ENOXAPARIN 40 MG/0.4 ML SYG SC (09:03)
[2018-04-28] MEDS: BISACODYL (EC) 5 MG TAB PO (09:08)
[2018-04-28] MEDS: ACCU-CHEK XX ×3 (09:50→19:55)
[2018-04-28] MEDS: HYDROCHLOROTHIAZIDE 12.5 MG CAP PO (12:17)
[2018-04-28] MEDS: ACETAMINOPHEN 325 MG TAB PO (17:09)
[2018-04-28] MEDS: SOD FERRIC GLUC COMPLX 125 MG in SOD CHLORIDE 0.9% 100 ML IVPB (17:33)
[2018-04-28] MEDS: LISINOPRIL 20 MG TAB PO (17:59)
[2018-04-28] MEDS: INSULIN GLARGINE [LANTus] (100 UNITS/ML) SYG SC (20:41)
[2018-04-28] MEDS: VANCOMYCIN 1.5 GM in SOD CHLORIDE 0.9% 250 ML IVPB (22:57)
[2018-04-29] MEDS: HYDROCODONE/APAP (5/325) TAB PO ×3 (00:29→18:37)
[2018-04-29 05:24] LABS: ADD MAN DIFF? NO
[2018-04-29 05:30] LABS: WHITE BLOOD COUNT 9.9 10^3/ul (4.8-10.8)
[2018-04-29 05:30] LABS: BASOPHIL # 0.1 10^3/ul (0.0-0.1); BASOPHILS % 0.9 % (0.0-2.0); EOSINOPHILS # 0.4 10^3/ul (0.0-0.5); EOSINOPHILS % 4.3 % (0.0-7.0); HEMATOCRIT 32.4 % (37.0-47.0); IMMATURE GRANS #M 0.22 10^3/ul; IMMATURE GRANS % (M) 2.2 %; LYMPHOCYTES # 2.9 10^3/ul (0.8-2.9); LYMPHOCYTES % 29.4 % (15.0-51.0); MEAN CORPUSCULAR HEMOGLOBIN 23.8 pg (29.0-33.0); MEAN CORPUSCULAR HGB CONC 30.9 g/dl (32.0-37.0); MEAN PLATELET VOLUME 9.7 fl (7.4-10.4); MONOCYTE # 0.5 10^3/ul (0.3-0.9); MONOCYTES % 5.3 % (0.0-11.0); NEUTROPHIL # 5.7 10^3/ul (1.6-7.5); NEUTROPHILS % 57.9 % (39.0-77.0); PLATELET COUNT 602 10^3/UL (140-415); RED BLOOD COUNT 4.21 10^6/ul (4.20-5.40)
[2018-04-29] MEDS: HYDROCHLOROTHIAZIDE 12.5 MG CAP PO (05:49)
[2018-04-29] MEDS: PIPER-TAZO 3.375 GM IV (PMX) 100 ML IVPB (05:49)
[2018-04-29 06:02] LABS: ANION GAP 16 (8-16); BLOOD UREA NITROGEN 14 mg/dl (7-20); CALCIUM 9.2 mg/dl (8.4-10.2); CARBON DIOXIDE 26 mmol/L (21-31); CHLORIDE 105 mmol/L (97-110); CREATININE 0.74 mg/dl (0.44-1.00); GLUCOSE 96 mg/dl (70-220); POTASSIUM 3.6 mmol/L (3.5-5.1); SODIUM 143 mmol/L (135-144)
[2018-04-29] MEDS: LISINOPRIL 20 MG TAB PO (08:19)
[2018-04-29] MEDS: INSULIN ASPART [NOVOLOG] 3 ML PEN SC ×3 (09:22→17:51)
[2018-04-29] MEDS: FERROUS SULFATE (EC) 325 MG TAB PO ×2 (09:24→13:46)
[2018-04-29] MEDS: TRIMETHOPRIM/SULFAMETHOX (DS) TAB PO (09:24)
[2018-04-29] MEDS: ENOXAPARIN 40 MG/0.4 ML SYG SC (09:36)
[2018-04-29] MEDS: AMOXICILLIN 500 MG CAP PO ×2 (10:48→18:08)
[2018-04-29] MEDS: ACCU-CHEK XX ×2 (11:50→14:09)
[2018-04-29] MEDS: ACETAMINOPHEN 325 MG TAB PO (11:59)
[2018-04-29 14:23] LABS: IRON 92 ug/dl (35-150)
[2018-04-29 14:32] LABS: % IRON SATURATION 27 % SAT (22-52); TOTAL IRON BINDING CAPACITY 346 ug/dl (241-421)
[2018-04-29] MEDS: LABETALOL 100 MG TAB PO (15:17)
[2018-04-30] MEDS ORDERED: HYDROCHLOROTHIAZIDE 12.5 MG CAP PO (06:00)
[2018-04-30] MEDS ORDERED: METOPROLOL 50 MG TAB PO (09:00)
[2018-04-30] MEDS ORDERED: LISINOPRIL 20 MG TAB PO (09:00)
== END 2018-04-29 19:05 | disposition home or self-care (01) | DRG 776 ==
LOC: E/R 23:02 → MS1 04-28 10:10
DX: O86.0 Infection of obstetric surgical wound (principal); L03.311 Cellulitis of abdominal wall; Z68.41 Body mass index [BMI] 40.0-44.9, adult; N39.0 Urinary tract infection, site not specified; E66.01 Morbid (severe) obesity due to excess calories; O90.0 Disruption of cesarean delivery wound; D50.9 Iron deficiency anemia, unspecified; E11.9 Type 2 diabetes mellitus without complications; I10 Essential (primary) hypertension; K59.00 Constipation, unspecified; B95.2 Enterococcus as the cause of diseases classified elsewhere; B95.62 Methicillin resistant Staphylococcus aureus infection as the cause of diseases classified elsewhere; Z79.4 Long term (current) use of insulin; Z91.14 Patient's other noncompliance with medication regimen; Z91.11 Patient's noncompliance with dietary regimen
CPT/HCPCS: 36415; 74176; 80048; 80053; 80202; 81001; 82565; 82962; 83036; 83540; 83605; 83690; 83735; 84520; 85025; 87040; 87070; 87075; 96361; 96374; 96375; 99285-25

== ENCOUNTER 2018-06-17 20:10 | Emergency (ER) | payer OTHER ==
[2018-06-17] MEDS: SOD CHLORIDE 0.9% 1,000 ML IV (21:51)
[2018-06-17 22:11] LABS: ADD MAN DIFF? NO
[2018-06-17 22:13] LABS: BASOPHILS % 0.4 % (0.0-2.0); EOSINOPHILS # 0.2 10^3/ul (0.0-0.5); EOSINOPHILS % 2.1 % (0.0-7.0); HEMATOCRIT 41.9 % (37.0-47.0); HEMOGLOBIN 12.7 g/dl (12.0-16.0); LYMPHOCYTES # 2.9 10^3/ul (0.8-2.9); LYMPHOCYTES % 26.4 % (15.0-51.0); MEAN CORPUSCULAR HEMOGLOBIN 23.9 pg (29.0-33.0); MEAN CORPUSCULAR HGB CONC 30.3 g/dl (32.0-37.0); MEAN CORPUSCULAR VOLUME 78.8 fl (82.0-101.0); MEAN PLATELET VOLUME 10.7 fl (7.4-10.4); MONOCYTE # 0.7 10^3/ul (0.3-0.9); NEUTROPHIL # 7.2 10^3/ul (1.6-7.5); NEUTROPHILS % 64.7 % (39.0-77.0); PLATELET COUNT 296 10^3/UL (140-415); RED BLOOD COUNT 5.32 10^6/ul (4.20-5.40); RED CELL DISTRIBUTION WIDTH 14.9 % (11.5-14.5)
[2018-06-17 22:13] LABS: WHITE BLOOD COUNT 11.1 10^3/ul (4.8-10.8)
[2018-06-17 22:23] LABS: ADD UMIC YES; UR ASCORBIC ACID 40 mg/dL (NEGATIVE); UR BACTERIA FEW /HPF (NONE SEEN); UR BILIRUBIN (Dip) NEGATIVE (NEGATIVE); UR BLOOD (Dip) 1+ mg/dL (NEGATIVE); UR CLARITY SLIGHTLY CLOUDY (CLEAR); UR COLOR YELLOW (YELLOW); UR GLUCOSE (Dip) NEGATIVE (NEGATIVE); UR KETONES (Dip) NEGATIVE (NEGATIVE); UR LEUKOCYTE ESTERASE (Dip) NEGATIVE Leu/ul (NEGATIVE); UR MUCUS MODERATE /HPF (NONE SEEN); UR NITRITE (Dip) NEGATIVE (NEGATIVE); UR RBC 1 /HPF (0-5); UR SPECIFIC GRAVITY (Dip) 1.031 (1.003-1.030); UR SQUAMOUS EPITHELIAL CELL FEW /HPF (FEW); UR TOTAL PROTEIN (Dip) 1+ mg/dl (NEGATIVE); UR UROBILINOGEN (Dip) 1+ mg/dL (NEGATIVE); UR WBC 6 /HPF (0-5)
[2018-06-17 22:26] LABS: ALANINE AMINOTRANSFERASE 34 IU/L (13-69); ALBUMIN/GLOBULIN RATIO 0.88; ALKALINE PHOSPHATASE 73 IU/L (42-121); ANION GAP 16 (8-16); ASPARTATE AMINO TRANSFERASE 25 IU/L (15-46); BILIRUBIN,INDIRECT 0.4 mg/dl (0-1.1); BILIRUBIN,TOTAL 0.4 mg/dl (0.2-1.3); BLOOD UREA NITROGEN 14 mg/dl (7-20); CALCIUM 10.2 mg/dl (8.4-10.2); CARBON DIOXIDE 27 mmol/L (21-31); CHLORIDE 104 mmol/L (97-110); CREATININE 0.61 mg/dl (0.44-1.00); GLUCOSE 182 mg/dl (70-220); LIPASE 51 U/L (23-300); SODIUM 143 mmol/L (135-144); TOTAL PROTEIN 8.5 g/dl (6.1-8.1)
[2018-06-17] MEDS: SOD CHLORIDE 0.9% 100 ML (23:51)
[2018-06-17] MEDS: IOHEXOL 300MG/ML 150 ML BTL (23:51)
[2018-06-18] MEDS: IBUPROFEN 800 MG TAB PO (01:38)
[2018-06-18] MEDS: ACETAMINOPHEN 500 MG TAB PO (01:39)
== END 2018-06-18 01:52 | disposition home or self-care (01) ==
LOC: FTE 06-18 01:52
DX: R50.9 Fever, unspecified (principal); E11.9 Type 2 diabetes mellitus without complications; Z79.4 Long term (current) use of insulin
CPT/HCPCS: 36415; 74177; 80053; 81001; 83690; 84703; 85025; 87086; 87400; 99285-25